=== PATIENT | male | born 1980 | race Caucasian/White ===

== ENCOUNTER 2017-12-24 14:33 | Emergency (ER) | payer OTHER ==
[~2017-12-24] VITALS: Ht 190.5 cm; Wt 122.5 kg
[2017-12-24 14:45] VITALS: BP 135/83; PULSE 89; RESP 16; TEMP 98.6; O2SAT 96
--- NOTE | 2017-12-24 16:55 | PD ---
HPI Chief Complaint: Psychiatric Symptoms Time Seen by Provider: 16:30 Travel History International Travel<30 days: No Contact w/Intl Traveler<30days: No Traveled to known affect area: No History of Present Illness HPI 37-year-old male presents to the emergency department voluntarily for suicidal ideations and feeling depressed 3 days. He denies history of suicidal thoughts or attempts. Denies homicidal ideations. Reports history of depression, but does not take medications. Denies having a plan. Says he does not have anybody and he is tired of being alone. He said his mom when he was a child and his dad 6 years ago. He has not talked to his brother in over 30 years. He does not have any friends. He reports smoking marijuana. Denies EtOH or other illicit drug use. Denies auditory or visual hallucinations. Says he becomes agitated very easily. Says these feelings are not like him. He says he has been walking [place] the past 3 days and is hoping that he falls over and hit his head and it kills him. Aggravated with feelings of being alone. No known relieving factors. Duration unknown. Onset unknown. Symptoms are moderate to severe in severity. He is complaining of bilateral feet swelling for the past week. Worse throughout the day. Better at night and in the morning. Denies chest pain, shortness of breath. Denies abdominal pain, fever, vomiting, change in urine or stool. Does not see a psychiatrist. Does not have a primary care provider. No known allergies. Denies significant past medical history. Has no other medical complaints. No other modifying factors or associated signs and symptoms. [facility] Past Medical History Medical History: Denies Significant Hx Social History Alcohol Use: No Tobacco Use: No Substance Use: Yes (marijuana) Allergies-Medications (Allergen,Severity, Reaction): Coded Allergies: No Known Allergies (Unverified , 12/24/17) Review of Systems Except as stated in HPI: all other systems reviewed are Neg Physical Exam Narrative GENERAL: Well-nourished, well-developed male patient, in no acute distress SKIN: Warm and dry. HEAD: Atraumatic. Normocephalic. EYES: Pupils equal and round. ENT: Mucosa pink and moist. NECK: Supple. Trachea midline. CARDIOVASCULAR: Regular rate and rhythm. No murmur appreciated. RESPIRATORY: No accessory muscle use. Clear to auscultation. Breath sounds equal bilaterally. GASTROINTESTINAL: Abdomen soft, non-tender, nondistended. Hepatic and splenic margins not palpable. Bowel sounds are active 4 quadrants. MUSCULOSKELETAL: No obvious deformities. No clubbing. No cyanosis. No edema. NEUROLOGICAL: Awake and alert. Oriented 3. No obvious cranial nerve deficits. Motor grossly within normal limits. Normal speech. Moves all extremities. 5/5 strength to all extremities. PSYCHIATRIC: No delusional thought processes. No hallucinations. Data Data Last Documented VS Vital Signs Date Time Temp Pulse Resp B/P (MAP) Pulse Ox O2 Delivery O2 Flow Rate FiO2 12/24/17 14:45 98.6 89 16 135/83 (100) 96 Orders Orders Complete Blood Count With Diff (12/24/17 16:36) Comprehensive Metabolic Panel (12/24/17 16:36) Thyroid Stimulating Hormone (12/24/17 16:36) Psych Screen (12/24/17 16:36) Drug Screen, Random Urine (12/24/17 16:36) Alcohol (Ethanol) (12/24/17 16:36) Salicylates (Aspirin) (12/24/17 16:36) Tylenol (Acetaminophen) (12/24/17 16:36) MDM Medical Decision Making Medical Screen Exam Complete: Yes Emergency Medical Condition: Yes Medical Record Reviewed: Yes Differential Diagnosis Depression, suicidal ideation, encounter for psychological evaluation Narrative Course Patient presents voluntarily. Patient placed under Song act for suicidal ideation. He is emotional and crying at the bedside. History of depression and says he has been feeling depressed for the past 3 days. Physical examination and vital signs are essentially unremarkable. Patient has no medical complaints to report. Psych screen has been ordered. If the laboratory results are unremarkable, the patient will be medically cleared for psychiatric evaluation and disposition. Diagnosis Primary Impression: Encounter for psychological evaluation Condition: Stable Sandra Collins [employer] CONTACT WORKER December 24, 2017 16:55
[2017-12-24 18:58] LABS: AUTOMATED NEUTROPHIL # 5.9 TH/MM3 (1.8-7.7); BASOPHIL # 0.1 TH/MM3 (0-0.2); BASOPHIL % 0.6 % (0.0-2.0); EOSINOPHIL # 0.4 TH/MM3 (0-0.4); EOSINOPHIL % 4.5 % (0.0-4.0); HEMATOCRIT 42.5 % (39.0-51.0); HEMOGLOBIN 14.5 GM/DL (13.0-17.0); LYMPH % 23.5 % (9.0-44.0); LYMPHOCYTE # 2.2 TH/MM3 (1.0-4.8); MEAN CORPUSCULAR HEMOGLOBIN 29.3 PG (27.0-34.0); MEAN CORPUSCULAR HGB CONC 34.1 % (32.0-36.0); MEAN PLATELET VOLUME 7.7 FL (7.0-11.0); MONO % 7.3 % (0.0-8.0); MONOCYTE # 0.7 TH/MM3 (0-0.9); NEUT % 64.1 % (16.0-70.0); PLATELET COUNT 251 TH/MM3 (150-450); RED BLOOD COUNT 4.94 MIL/MM3 (4.50-5.90); RED CELL DISTRIBUTION WIDTH 12.9 % (11.6-17.2); WHITE BLOOD COUNT 9.3 TH/MM3 (4.0-11.0)
[2017-12-24 19:27] LABS: ALBUMIN 3.4 GM/DL (3.4-5.0); ALKALINE PHOSPHATASE 79 U/L (45-117); ALT (GPT) 44 U/L (12-78); AST (GOT) 21 U/L (15-37); BICARBONATE 27.7 MEQ/L (21.0-32.0); BLOOD UREA NITROGEN 19 MG/DL (7-18); CALCIUM 8.9 MG/DL (8.5-10.1); CHLORIDE 105 MEQ/L (98-107); CREATININE 1.02 MG/DL (0.60-1.30); GLOMERULAR FILTRATION RATE 81 ML/MIN (>89); GLUCOSE,RANDOM 87 MG/DL (74-106); SODIUM (NA) 142 MEQ/L (136-145); TOTAL BILIRUBIN ADULT 0.4 MG/DL (0.2-1.0)
[2017-12-24 19:32] LABS: ACETAMINOPHEN LESS THAN 2.0 MCG/ML (10.0-30.0)
[2017-12-24 19:39] VITALS: BP 142/88; PULSE 85; RESP 18; TEMP 98.4; O2SAT 98
[2017-12-24 22:05] VITALS: BP 135/85; PULSE 77; RESP 20; TEMP 98.1; O2SAT 97
[2017-12-25 02:30] VITALS: BP 137/81; PULSE 77; RESP 16; O2SAT 97
[2017-12-25 06:44] VITALS: BP 109/63; PULSE 57; RESP 18; O2SAT 98
--- NOTE | 2017-12-25 15:43 | PD ---
History of Present Illness Chief Complaint: Psychiatric Symptoms Time Seen by Provider: 15:10 Travel History International Travel<30 Days: No Contact w/Intl Traveler<30days: No Known affected area: No Legal Status Legal Status: Involuntary Song Act Comment: SIGNED BY: DR MARGY MD IN THE ED History of Present Illness: History of Present Illness HPI 37-year-old, , , homeless male presents to the emergency department voluntarily for suicidal ideations and feeling depressed 3 days. He reports that he has been having a bad week and that he was feeling very alone and asked a friend to bring him to the hospital after he had spent [place]. Furthermore on he stays that he came to the hospital because his girlfriend told him that if I came to the hospital she would consider getting back together with him. He originally reported to the ED provider that he had been feeling depressed, feeling agitated easily, and that he was wandering around the [place] hoping that he would fall over hit his head and be killed by the injury. The patient was monitor and secure environment and presented no suicidality. EMR is reviewed. No previous contact with [facility] psychiatry. Toxicology report was positive for amphetamines and cannabinoids. Patient is seen. [facility] is present. The patient is alert , oriented, engaging and verbal. His speech is clear and logical. He presents no evidence of any thought process or thought content disorder. There are no hallucinations, no delusions, no paranoia. His mood is mildly depressed. He denies any suicidal or homicidal ideation, intent or plan. He admits that he recently broke up with his girlfriend of 9 years due to his volatile nature at times. He denies that he has ever become physically aggressive towards her. He also states that she had stipulated that he come to the hospital for an evaluation prior to her accepting him back. In terms of substance abuse he only admits to using cannabis. Positive toxicology as stated previously for amphetamines. . PFSH Past Medical History Medical History: Denies Significant Hx Psychiatric History Psychiatric History Hx Psychiatric Treatment: NO PRIOR HX History of Inpatient Treatment: No Social History Divorce, currently homeless, was involved in a 9 year relationship that ended last week. Works in [employer]. Hx Alcohol Use: No Hx Tobacco Use: No Hx Substance Use: Yes (MARIJUANA, AMPHETAMINES) Substance Use Type: Marijuana, Amphetamines-Stimulants Hx of Substance Use Treatment: No Allergies-Medications (Allergen,Severity, Reaction): Coded Allergies: No Known Allergies (Unverified , 12/24/17) Reported Meds & Prescriptions Reported Meds & Active Scripts Active No Active Prescriptions or Reported Medications Review of Systems Psychiatric: COMPLAINS OF: Depression Except as stated in HPI: all other systems reviewed are Neg Mental Status Examination Appearance: Disheveled Consciousness: Alert Orientation: x4 Motor Activity: Normal gait Speech: Unremarkable Language: Adequate Fund of Knowledge: Adequate Attention and Concentration: Adequate Memory: Unremarkable Mood: Sad Affect: Appropriate Thought Process & Associations: Intact, Logical, Goal directed Thought Content: Appropriate Hallucination Type: None Delusion Type: None Suicidal Ideation: No Suicidal Plan: No Suicidal Intention: No Homicidal Ideation: No Homicidal Plan: No Homicidal Intention: No Insight: Fair Judgment: Adequate MDM Medical Decision Making Medical Record Reviewed: Yes Assessment/Plan 37-year-old, single, homeless male with no previous psychiatric history who originally presented on a voluntary status requesting a psychiatric evaluation for reported symptoms of depression and suicidal ideation. Patient also reported that he has been the last 2 days wandering around the [place] and that at that time he was feeling like if he fell and hit his head on a rock and he would not matter to him. He he did not attempt to harm himself in anyway. He later reported that he came to the hospital" to make sure I was not as goofy as I thought". He was monitored in secure environment and presented no behavioral concerns and no suicidality. Patient notes time of this evaluation denies any suicidal or homicidal ideation, intent or plan he is future oriented went oriented and states that he now feels like he would be better off making things different for himself. He contracts for safety. He is advised to return to the emergency department if there are any changes or if he feels that he is at risk of harming himself. He is agrees to such and states "I came here on my own. The ambulance and bring me the police did not bring me so I would come back if I felt the same way again." He is cognitively intact. And he is hopeful that his girlfriend will take him back again. Abril YE. Psychiatrically clear for discharge from the ED. Orders Orders Complete Blood Count With Diff (12/24/17 16:36) Comprehensive Metabolic Panel (12/24/17 16:36) Thyroid Stimulating Hormone (12/24/17 16:36) Psych Screen (12/24/17 16:36) Drug Screen, Random Urine (12/24/17 16:36) Alcohol (Ethanol) (12/24/17 16:36) Salicylates (Aspirin) (12/24/17 16:36) Tylenol (Acetaminophen) (12/24/17 16:36) Diet Regular Basic (12/24/17 Dinner) Diet Regular Basic (12/25/17 Breakfast) Diet Regular Basic (12/25/17 Lunch) Diet Regular Basic (12/25/17 Dinner) Results Vital Signs Date Time Temp Pulse Resp B/P (MAP) Pulse Ox O2 Delivery O2 Flow Rate FiO2 12/25/17 06:44 57 18 109/63 (78) 98 Room Air 12/25/17 02:30 77 16 137/81 (99) 97 Room Air 12/24/17 22:05 98.1 77 20 135/85 (102) 97 12/24/17 19:39 98.4 85 18 142/88 (106) 98 Room Air Laboratory Tests Test 12/24/17 17:35 White Blood Count 9.3 Red Blood Count 4.94 Hemoglobin 14.5 Hematocrit 42.5 Mean Corpuscular Volume 86.0 Mean Corpuscular Hemoglobin 29.3 Mean Corpuscular Hemoglobin Concent 34.1 Red Cell Distribution Width 12.9 Platelet Count 251 Mean Platelet Volume 7.7 Neutrophils (%) (Auto) 64.1 Lymphocytes (%) (Auto) 23.5 Monocytes (%) (Auto) 7.3 Eosinophils (%) (Auto) 4.5 Basophils (%) (Auto) 0.6 Neutrophils # (Auto) 5.9 Lymphocytes # (Auto) 2.2 Monocytes # (Auto) 0.7 Eosinophils # (Auto) 0.4 Basophils # (Auto) 0.1 CBC Comment DIFF FINAL Differential Comment Blood Urea Nitrogen 19 Creatinine 1.02 Random Glucose 87 Total Protein 7.0 Albumin 3.4 Calcium Level 8.9 Alkaline Phosphatase 79 Aspartate Amino Transf (AST/SGOT) 21 Alanine Aminotransferase (ALT/SGPT) 44 Total Bilirubin 0.4 Sodium Level 142 Potassium Level 3.9 Chloride Level 105 Carbon Dioxide Level 27.7 Anion Gap 9 Estimat Glomerular Filtration Rate 81 Thyroid Stimulating Hormone 3rd Gen 0.644 Salicylates Level LESS THAN 1.7 Urine Opiates Screen NEG Acetaminophen Level LESS THAN 2.0 Urine Barbiturates Screen NEG Urine Amphetamines Screen POS Urine Benzodiazepines Screen NEG Urine Cocaine Screen NEG Urine Cannabinoids Screen POS Ethyl Alcohol Level LESS THAN 3 Diagnosis Primary Impression: Encounter for psychological evaluation Additional Impressions: Adjustment disorder Amphetamine abuse Psychiatrically Cleared: Yes Med/ Other Pt Specific Info: No Meds Exist/No RX given Prescriptions No Active Prescriptions or Reported Meds Disposition: 01 DISCHARGE HOME Condition: Stable Problem Qualifiers Additional Impressions: Adjustment disorder Qualified Codes: F43.21 - Adjustment disorder with depressed mood Etsher Cooper Dec 25, 2017 15:43
--- NOTE | 2017-12-25 16:35 | PD ---
Physical Exam Time Seen by Provider: 16:33 SHAE Arteaga has evaluated the patient, lifted the Song act and cleared the patient for discharge. Data Data Last Documented VS Vital Signs Date Time Temp Pulse Resp B/P (MAP) Pulse Ox O2 Delivery O2 Flow Rate FiO2 12/25/17 06:44 57 18 109/63 (78) 98 Room Air 12/24/17 22:05 98.1 Orders Orders Complete Blood Count With Diff (12/24/17 16:36) Comprehensive Metabolic Panel (12/24/17 16:36) Thyroid Stimulating Hormone (12/24/17 16:36) Psych Screen (12/24/17 16:36) Drug Screen, Random Urine (12/24/17 16:36) Alcohol (Ethanol) (12/24/17 16:36) Salicylates (Aspirin) (12/24/17 16:36) Tylenol (Acetaminophen) (12/24/17 16:36) Diet Regular Basic (12/24/17 Dinner) Diet Regular Basic (12/25/17 Breakfast) Diet Regular Basic (12/25/17 Lunch) Diet Regular Basic (12/25/17 Dinner) Labs Laboratory Tests Test 12/24/17 17:35 White Blood Count 9.3 TH/MM3 Red Blood Count 4.94 MIL/MM3 Hemoglobin 14.5 GM/DL Hematocrit 42.5 % Mean Corpuscular Volume 86.0 FL Mean Corpuscular Hemoglobin 29.3 PG Mean Corpuscular Hemoglobin Concent 34.1 % Red Cell Distribution Width 12.9 % Platelet Count 251 TH/MM3 Mean Platelet Volume 7.7 FL Neutrophils (%) (Auto) 64.1 % Lymphocytes (%) (Auto) 23.5 % Monocytes (%) (Auto) 7.3 % Eosinophils (%) (Auto) 4.5 % Basophils (%) (Auto) 0.6 % Neutrophils # (Auto) 5.9 TH/MM3 Lymphocytes # (Auto) 2.2 TH/MM3 Monocytes # (Auto) 0.7 TH/MM3 Eosinophils # (Auto) 0.4 TH/MM3 Basophils # (Auto) 0.1 TH/MM3 CBC Comment DIFF FINAL Differential Comment Blood Urea Nitrogen 19 MG/DL Creatinine 1.02 MG/DL Random Glucose 87 MG/DL Total Protein 7.0 GM/DL Albumin 3.4 GM/DL Calcium Level 8.9 MG/DL Alkaline Phosphatase 79 U/L Aspartate Amino Transf (AST/SGOT) 21 U/L Alanine Aminotransferase (ALT/SGPT) 44 U/L Total Bilirubin 0.4 MG/DL Sodium Level 142 MEQ/L Potassium Level 3.9 MEQ/L Chloride Level 105 MEQ/L Carbon Dioxide Level 27.7 MEQ/L Anion Gap 9 MEQ/L Estimat Glomerular Filtration Rate 81 ML/MIN Thyroid Stimulating Hormone 3rd Gen 0.644 uIU/ML Salicylates Level LESS THAN 1.7 MG/DL Urine Opiates Screen NEG Acetaminophen Level LESS THAN 2.0 MCG/ML Urine Barbiturates Screen NEG Urine Amphetamines Screen POS Urine Benzodiazepines Screen NEG Urine Cocaine Screen NEG Urine Cannabinoids Screen POS Ethyl Alcohol Level LESS THAN 3 MG/DL MDM Supervised Visit with KIKI: No Narrative Course SHAE Santana has evaluated the patient, lifted the Song act and cleared the patient for discharge. Patient contracts safety. Denies suicidal or homicidal ideations. Patient will be provided community resource packet to [facility] for follow-up. Has friends and family for support. Patient was medically cleared by alternate provider prior to psych screening. Patient has been evaluated by psychiatry and and is now cleared for discharge. Diagnosis Primary Impression: Adjustment disorder Qualified Codes: F43.21 - Adjustment disorder with depressed mood Referrals: [facility] (Out patient) [facility] Primary Care Physician Psychiatrist [facility] Patient Instructions: General Instructions, Mood Disorders (ED) Additional Instruction: Contract safety to your self and others Follow-up with psychiatry Follow-up with primary care provider Follow-up with [facility] Return to the emergency department immediately with worsening of symptoms Med/Other Pt SpecificInfo: No Change to Meds, No Meds Exist/No RX given Scripts No Active Prescriptions or Reported Meds Disposition: 01 DISCHARGE HOME Condition: Stable Sandra Collins Dec 25, 2017 16:35
== END 2017-12-25 16:58 | disposition home or self-care (01) ==
LOC: NEPD 14:33 → NEPJ 12-25 16:58
DX: F43.21 Adjustment disorder with depressed mood (principal); F15.10 Other stimulant abuse, uncomplicated; F12.90 Cannabis use, unspecified, uncomplicated
CPT/HCPCS: 80053; 80307; 84443; 85025; 99283